=== PATIENT | male | born 1995 | race Hispanic/Latino ===

== ENCOUNTER 2016-12-17 23:46 | Emergency (ER) | payer MEDICAID, OTHER ==
[~2016-12-17] VITALS: Ht 170.2 cm; Wt 69.5 kg
[2016-12-17 23:49] VITALS: BP 134/78; PULSE 100; RESP 16; O2SAT 97
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
== END 2016-12-18 01:00 | disposition home or self-care (01) ==
LOC: SED 23:46
DX: S02.2XXA Fracture of nasal bones, initial encounter for closed fracture (principal); W50.0XXA Accidental hit or strike by another person, initial encounter; Y92.9 Unspecified place or not applicable; Y93.89 Activity, other specified; Y99.8 Other external cause status